=== PATIENT | female | born 1940 | race Native Hawaiian/Other Pacific Islander ===

== ENCOUNTER → 2016-12-17 | Outpatient (CLI) | payer MEDICARE, OTHER ==
[~2016-12-17] MED LIST: ACET-784 PO; ALEN70TA2 PO; CALC1TAB15 PO; CARB25DR OP; CARV10CR PO; CHOL2000 PO; FOLI1 PO; HYDR25TA PO; NAPR220T57 PO; ROSU10 PO
== END | disposition home or self-care (01) ==
LOC: RADMN 16:35
PROVIDERS: ATTEND Legal Medicine
DX: J18.9 Pneumonia, unspecified organism (principal)
CPT/HCPCS: 71020

== ENCOUNTER 2017-08-26 16:32 | Emergency (ER) | payer MEDICARE, OTHER ==
[~2017-08-26] VITALS: Ht 152.4 cm; Wt 59.1 kg
[2017-08-26] MEDS ORDERED: CARB-38 PO (16:45)
[2017-08-26] MEDS ORDERED: CARV12 PO (16:46)
[2017-08-26] MEDS ORDERED: ATOR20TA86 PO (16:46)
[2017-08-26 17:12] LABS: BASOPHILS % (AUTO) 0.4 % (0.0-2.0); EOSINOPHILS % (AUTO) 3.4 % (1.0-6.0); HEMATOCRIT 38.4 % (36-46); LYMPHOCYTES # (AUTO) 2.5 K/uL (1.0-4.8); LYMPHOCYTES % (AUTO) 22.8 % (22.0-44.0); MEAN CORPUSCULAR HEMOGLOBIN 30.3 pg (26.0-34.0); MEAN CORPUSCULAR HGB CONC 33.9 G/dL (31.0-37.0); MEAN CORPUSCULAR VOLUME 89 fL (80-100); MONOCYTES # (AUTO) 0.7 K/uL (0.1-1.0); MONOCYTES % (AUTO) 6.5 % (2.0-9.0); NEUTROPHILS # (AUTO) 7.5 K/uL (1.8-7.7); NEUTROPHILS % (AUTO) 66.9 % (40.0-70.0); PLATELET COUNT (AUTO) 290 K/uL (150-450); RED CELL DISTRIBUTION WIDTH 13.1 % (11.5-14.5); WHITE BLOOD COUNT (AUTO) 11.2 K/uL (4.5-11.0)
[2017-08-26 17:26] LABS: ANION GAP 9 mmol/L (8-16); CALCIUM, TOTAL 9.7 mg/dL (8.8-10.5); CARBON DIOXIDE 29 mmol/L (22-29); CHLORIDE 98 mmol/L (98-107); CREATININE 0.86 mg/dL (0.60-1.30); GLOMERULAR FILTR. RATE CALC > 60 mL/min (>60); POTASSIUM 4.2 mmol/L (3.5-5.1); SODIUM SERUM 136 mmol/L (136-145); UREA NITROGEN, BLOOD 21 mg/dL (7-18)
[2017-08-26 17:29] LABS: PROTHROMBIN TIME 10.8 SEC (9.4-11.6)
[2017-08-26 17:48] LABS: CREATINE KINASE MB 0.6 ng/mL (0-5); CREATINE KINASE, TOTAL 91 U/L (26-192)
[2017-08-26 17:55] LABS: ALANINE AMINOTRANSFERASE 12 U/L (12-78); ASPARTATE AMINOTRANSFERASE 22 U/L (15-37); BILIRUBIN,TOTAL 0.5 mg/dL (0.1-1.0)
[2017-08-26 17:56] LABS: ALBUMIN 3.8 g/dL (3.4-5.0)
[2017-08-26 18:50] LABS: ADD UA MICROSCOPIC YES; APPEARANCE,URINE CLEAR (CLEAR); GLUCOSE, URINE (UA) NEGATIVE (NEGATIVE); KETONES,URINE NEGATIVE (NEGATIVE); LEUKOCYTE ESTERASE ,URINE NEGATIVE (NEGATIVE); OCCULT BLOOD,URINE TRACE (NEGATIVE); PH,URINE 5.5 (5.0-8.0); PROTEIN,URINE NEGATIVE (NEGATIVE)
[2017-08-26 18:59] LABS: RBC,URINE 0-2 /HPF (0-2); SQUAMOUS EPITHELIAL CELL,UR Few /LPF (None Seen); WBC,URINE None Seen /HPF (0-5)
[2017-08-26] MEDS ORDERED: PROPARACAINE HCL 0.5% 15 ML OPHTHALMIC SOLUTION OD ONE (21:15)
[2017-08-26] MEDS ORDERED: FLUORESCEIN SODIUM 1 MG STRIP ONE (21:18)
[2017-08-26 22:30] VITALS: BP 132/72
== END 2017-08-26 22:34 | disposition home or self-care (01) ==
LOC: EMS 16:33
DX: I10 Essential (primary) hypertension (principal); H10.9 Unspecified conjunctivitis; I11.0 Hypertensive heart disease with heart failure; I50.9 Heart failure, unspecified; I25.10 Atherosclerotic heart disease of native coronary artery without angina pectoris; E78.00 Pure hypercholesterolemia, unspecified
CPT/HCPCS: 93005; 99285

== ENCOUNTER 2018-08-22 21:48 | Emergency (ER) | payer MEDICARE, OTHER ==
[~2018-08-22] VITALS: Ht 152.4 cm; Wt 50.0 kg
[~2018-08-22 21:48] MED LIST changes: +ATOR20TA86 PO; +CARB-38 PO; +CARV12 PO; -ROSU10 PO
[2018-08-22 21:59] VITALS: BP 151/91
[2018-08-22 22:41] LABS: APPEARANCE,URINE CLOUDY (CLEAR); BILIRUBIN,URINE NEGATIVE (NEGATIVE); GLUCOSE, URINE (UA) NEGATIVE (NEGATIVE); KETONES,URINE NEGATIVE (NEGATIVE); LEUKOCYTE ESTERASE ,URINE TRACE (NEGATIVE); NITRATE,URINE NEGATIVE (NEGATIVE); OCCULT BLOOD,URINE LARGE (NEGATIVE); PROTEIN,URINE TRACE (NEGATIVE); UROBILINOGEN,URINE 0.2 mg/dL (<=1.0)
[2018-08-22 22:54] LABS: BACTERIA,URINE Rare /HPF (None Seen); RBC,URINE >100 /HPF (0-2)
[2018-08-22 22:55] LABS: RENAL EPITHELIAL CELLS,URINE Rare /LPF (None Seen); SQUAMOUS EPITHELIAL CELL,UR Few /LPF (None Seen)
[2018-08-22] MEDS ORDERED: CIPROFLOXACIN HCL 250 MG TABLET PO ONE (23:30)
== END 2018-08-22 23:24 | disposition home or self-care (01) ==
LOC: EMS 21:49
DX: N39.0 Urinary tract infection, site not specified (principal); I11.0 Hypertensive heart disease with heart failure; I50.9 Heart failure, unspecified; I25.10 Atherosclerotic heart disease of native coronary artery without angina pectoris; E78.00 Pure hypercholesterolemia, unspecified; Z79.899 Other long term (current) drug therapy
CPT/HCPCS: 87086

== ENCOUNTER 2019-11-04 09:21 | Inpatient (IN) | payer MEDICARE, OTHER ==
[~2019-11-04] VITALS: Ht 154.9 cm; Wt 54.2 kg
[2019-11-04] MEDS ORDERED: CARB1TAB42 PO (10:02)
[2019-11-04] MEDS ORDERED: BUSP5TAB20 PO (10:02)
[2019-11-04] MEDS ORDERED: CARV25 PO (10:02)
[2019-11-04] MEDS ORDERED: ATOR10TA84 PO (10:02)
[2019-11-04] MEDS ORDERED: HYDROCODONE/ACETAMINOPHEN 5-325 MG TABLET PO ONE (10:15)
[2019-11-04 10:59] LABS: BASOPHILS % (AUTO) 0.6 % (0.0-2.0); EOSINOPHILS % (AUTO) 1.3 % (1.0-6.0); HEMATOCRIT 39.6 % (36-46); HEMOGLOBIN 12.9 g/dL (12.0-16.0); LYMPHOCYTES % (AUTO) 16.8 % (22.0-44.0); MEAN CORPUSCULAR HEMOGLOBIN 29.9 pg (26.0-34.0); MEAN CORPUSCULAR HGB CONC 32.6 G/dL (31.0-37.0); MEAN CORPUSCULAR VOLUME 92 fL (80-100); MONOCYTES # (AUTO) 0.7 K/uL (0.1-1.0); MONOCYTES % (AUTO) 5.6 % (2.0-9.0); NEUTROPHILS # (AUTO) 8.8 K/uL (1.8-7.7); NEUTROPHILS % (AUTO) 75.7 % (40.0-70.0); PLATELET COUNT (AUTO) 256 K/uL (150-450); RED BLOOD CELL COUNT(AUTO) 4.31 MIL/uL (4.00-5.20); RED CELL DISTRIBUTION WIDTH 12.7 % (11.5-14.5)
[2019-11-04 11:04] LABS: APPEARANCE,URINE CLEAR (CLEAR); BILIRUBIN,URINE NEGATIVE (NEGATIVE); GLUCOSE, URINE (UA) NEGATIVE (NEGATIVE); KETONES,URINE NEGATIVE (NEGATIVE); LEUKOCYTE ESTERASE ,URINE NEGATIVE (NEGATIVE); NITRATE,URINE NEGATIVE (NEGATIVE); OCCULT BLOOD,URINE NEGATIVE (NEGATIVE); PROTEIN,URINE TRACE (NEGATIVE); UROBILINOGEN,URINE 0.2 mg/dL (<=1.0)
[2019-11-04 11:05] LABS: ANION GAP 6 mmol/L (8-16); CALCIUM, TOTAL 9.7 mg/dL (8.8-10.5); CARBON DIOXIDE 27 mmol/L (22-29); CHLORIDE 103 mmol/L (98-107); CREATININE 0.85 mg/dL (0.60-1.30); GLUCOSE,RANDOM 107 mg/dL (70-110); POTASSIUM 4.1 mmol/L (3.5-5.1); SODIUM SERUM 136 mmol/L (136-145); UREA NITROGEN, BLOOD 19 mg/dL (7-18)
[2019-11-04 11:06] LABS: GLOMERULAR FILTR. RATE CALC > 60 mL/min (>60)
[2019-11-04 11:12] LABS: PROTHROMBIN TIME 10.1 SEC (9.4-11.6)
[2019-11-04 11:23] LABS: RBC,URINE 0-2 /HPF (0-2)
[2019-11-04 11:23] LABS: LACTIC ACID 1.6 mmol/L (0.4-2.0)
[2019-11-04 11:24] LABS: BACTERIA,URINE None Seen /HPF (None Seen); SQUAMOUS EPITHELIAL CELL,UR Few /LPF (None Seen); WBC,URINE 0-2 /HPF (0-5); YEAST,URINE None Seen /HPF (None Seen)
[2019-11-04 11:30] LABS: ALANINE AMINOTRANSFERASE 12 U/L (12-78); ALBUMIN 3.8 g/dL (3.4-5.0); ALKALINE PHOSPHATASE 70 U/L (46-116); ASPARTATE AMINOTRANSFERASE 22 U/L (15-37); BILIRUBIN,TOTAL 0.5 mg/dL (0.1-1.0); CREATINE KINASE, TOTAL ONLY 99 U/L (26-192)
[2019-11-04] MEDS ORDERED: ACETAMINOPHEN 325 MG TABLET PO PRN (12:45)
[2019-11-04] MEDS ORDERED: ONDANSETRON HCL 4 MG/2 ML VIAL IVP PRN (12:45)
[2019-11-04] MEDS ORDERED: 0.9% SODIUM CHLORIDE 10 ML SYRINGE IVP PRN (12:45)
[2019-11-04 18:18] VITALS: BP 143/68
[2019-11-04 20:09] VITALS: BP 104/61
[2019-11-05 00:22] VITALS: BP 113/66
[2019-11-05 04:11] VITALS: BP 133/72
[2019-11-05 07:13] LABS: BASOPHILS % (AUTO) 0.5 % (0.0-2.0); EOSINOPHILS % (AUTO) 0.9 % (1.0-6.0); HEMATOCRIT 37.1 % (36-46); HEMOGLOBIN 12.3 g/dL (12.0-16.0); LYMPHOCYTES # (AUTO) 2.1 K/uL (1.0-4.8); LYMPHOCYTES % (AUTO) 21.8 % (22.0-44.0); MEAN CORPUSCULAR HEMOGLOBIN 30.2 pg (26.0-34.0); MEAN CORPUSCULAR HGB CONC 33.2 G/dL (31.0-37.0); MEAN CORPUSCULAR VOLUME 91 fL (80-100); MONOCYTES # (AUTO) 0.7 K/uL (0.1-1.0); MONOCYTES % (AUTO) 7.3 % (2.0-9.0); NEUTROPHILS # (AUTO) 6.7 K/uL (1.8-7.7); NEUTROPHILS % (AUTO) 69.5 % (40.0-70.0); PLATELET COUNT (AUTO) 278 K/uL (150-450); RED BLOOD CELL COUNT(AUTO) 4.07 MIL/uL (4.00-5.20); RED CELL DISTRIBUTION WIDTH 12.9 % (11.5-14.5)
[2019-11-05 07:34] LABS: ALANINE AMINOTRANSFERASE 19 U/L (12-78); ALBUMIN 3.3 g/dL (3.4-5.0); ALKALINE PHOSPHATASE 59 U/L (46-116); ANION GAP 9 mmol/L (8-16); ASPARTATE AMINOTRANSFERASE 21 U/L (15-37); BILIRUBIN,TOTAL 0.8 mg/dL (0.1-1.0); CALCIUM, TOTAL 8.9 mg/dL (8.8-10.5); CARBON DIOXIDE 28 mmol/L (22-29); CHLORIDE 102 mmol/L (98-107); CREATININE 0.72 mg/dL (0.60-1.30); GLUCOSE,RANDOM 106 mg/dL (70-110); SODIUM SERUM 139 mmol/L (136-145); TOTAL PROTEIN, SERUM 7.1 g/dL (6.4-8.2); UREA NITROGEN, BLOOD 23 mg/dL (7-18)
[2019-11-05 07:36] LABS: GLOMERULAR FILTR. RATE CALC > 60 mL/min (>60)
[2019-11-05 08:20] VITALS: BP 143/80
[2019-11-05] MEDS ORDERED: ONDANSETRON HCL 4 MG/2 ML VIAL IVP PRN (08:30)
[2019-11-05] MEDS ORDERED: ZOLPIDEM TARTRATE 5 MG TABLET PO PRN (08:30)
[2019-11-05] MEDS ORDERED: 0.9% SODIUM CHLORIDE 10 ML SYRINGE IVP PRN (08:30)
[2019-11-05] MEDS ORDERED: CARVEDILOL PHOSPHATE 10 MG CR CAPSULE PO SCH (09:00)
[2019-11-05] MEDS ORDERED: CARBIDOPA/LEVODOPA 50-200 MG ER TABLET PO SCH (09:00)
[2019-11-05] MEDS: HYDROCHLOROTHIAZIDE 25 MG TABLET PO SCH ×2 (09:32→20:16)
[2019-11-05] MEDS: PANTOPRAZOLE SODIUM 40 MG DR TABLET PO SCH (09:32)
[2019-11-05] MEDS: DOCUSATE SODIUM 100 MG CAPSULE PO SCH ×2 (09:33→20:16)
[2019-11-05] MEDS: BusPIRone HCL 5 MG TABLET PO SCH ×3 (09:33→20:16)
[2019-11-05] MEDS: CARBIDOPA/LEVODOPA 25-100 MG ER TABLET PO SCH ×2 (09:33→20:16)
[2019-11-05 11:29] VITALS: BP 136/63
[2019-11-05] MEDS: CARVEDILOL 25 MG TABLET PO SCH (15:53)
[2019-11-05] MEDS ORDERED: IPRATROPIUM BROMIDE 0.5 MG/2.5 ML NEB SOLUTION NEB PRN (16:00)
[2019-11-05] MEDS ORDERED: MAGNESIUM SULFATE 4 GM/WATER 100 ML IV PRN (16:00)
[2019-11-05] MEDS ORDERED: ALBUTEROL SULFATE 2.5 MG/0.5 ML NEB SOLUTION NEB PRN (16:00)
[2019-11-05 16:02] VITALS: BP 107/56
[2019-11-05] MEDS ORDERED: SODIUM CHLORIDE 0.9% 50 ML ONE (16:12)
[2019-11-05] MEDS: CefTRIAXone 1 GM/DEXTROSE 50 ML IV SCH (17:43)
[2019-11-05 20:15] VITALS: BP 113/65
[2019-11-05] MEDS: ATORVASTATIN CALCIUM 10 MG TABLET PO SCH (20:16)
[2019-11-05] MEDS: IPRATROPIUM BROMIDE 0.5 MG/2.5 ML NEB SOLUTION NEB SCH (20:20)
[2019-11-05] MEDS: ALBUTEROL SULFATE 2.5 MG/0.5 ML NEB SOLUTION NEB SCH (20:20)
[2019-11-06] VITALS (7 sets, daily range): BP systolic 108–135; BP diastolic 63–74
[2019-11-06] MEDS: IPRATROPIUM BROMIDE 0.5 MG/2.5 ML NEB SOLUTION NEB SCH ×4 (02:00→20:22)
[2019-11-06] MEDS: ALBUTEROL SULFATE 2.5 MG/0.5 ML NEB SOLUTION NEB SCH ×4 (02:00→20:22)
[2019-11-06] MEDS: ACETAMINOPHEN 325 MG TABLET PO PRN (05:38)
[2019-11-06 07:04] LABS: BASOPHILS % (AUTO) 0.3 % (0.0-2.0); EOSINOPHILS % (AUTO) 1.8 % (1.0-6.0); HEMATOCRIT 36.3 % (36-46); HEMOGLOBIN 11.8 g/dL (12.0-16.0); LYMPHOCYTES # (AUTO) 2.3 K/uL (1.0-4.8); LYMPHOCYTES % (AUTO) 19.8 % (22.0-44.0); MEAN CORPUSCULAR HEMOGLOBIN 29.7 pg (26.0-34.0); MEAN CORPUSCULAR HGB CONC 32.5 G/dL (31.0-37.0); MEAN CORPUSCULAR VOLUME 91 fL (80-100); MONOCYTES # (AUTO) 0.8 K/uL (0.1-1.0); MONOCYTES % (AUTO) 7.1 % (2.0-9.0); NEUTROPHILS # (AUTO) 8.2 K/uL (1.8-7.7); PLATELET COUNT (AUTO) 266 K/uL (150-450); RED BLOOD CELL COUNT(AUTO) 3.98 MIL/uL (4.00-5.20)
[2019-11-06 07:24] LABS: ANION GAP 8 mmol/L (8-16); CALCIUM, TOTAL 8.8 mg/dL (8.8-10.5); CARBON DIOXIDE 30 mmol/L (22-29); CHLORIDE 100 mmol/L (98-107); CREATININE 0.68 mg/dL (0.60-1.30); GLUCOSE,RANDOM 104 mg/dL (70-110); POTASSIUM 3.7 mmol/L (3.5-5.1); SODIUM SERUM 138 mmol/L (136-145); UREA NITROGEN, BLOOD 22 mg/dL (7-18)
[2019-11-06 07:28] LABS: GLOMERULAR FILTR. RATE CALC > 60 mL/min (>60)
[2019-11-06] MEDS: DOCUSATE SODIUM 100 MG CAPSULE PO SCH ×2 (08:36→20:57)
[2019-11-06] MEDS: HYDROCHLOROTHIAZIDE 25 MG TABLET PO SCH ×2 (08:37→20:54)
[2019-11-06] MEDS: CARVEDILOL 25 MG TABLET PO SCH (08:37)
[2019-11-06] MEDS: BusPIRone HCL 5 MG TABLET PO SCH ×3 (08:37→20:54)
[2019-11-06] MEDS: PANTOPRAZOLE SODIUM 40 MG DR TABLET PO SCH (08:37)
[2019-11-06] MEDS: CARBIDOPA/LEVODOPA 25-100 MG ER TABLET PO SCH ×2 (08:37→20:54)
[2019-11-06] MEDS ORDERED: LACTULOSE 20 GM/30 ML SOLUTION UDCUP PO PRN (14:30)
[2019-11-06] MEDS: CefTRIAXone 1 GM/DEXTROSE 50 ML IV SCH (16:47)
[2019-11-06] MEDS: ATORVASTATIN CALCIUM 10 MG TABLET PO SCH (20:54)
[2019-11-07] MEDS: ALBUTEROL SULFATE 2.5 MG/0.5 ML NEB SOLUTION NEB SCH ×4 (02:00→21:02)
[2019-11-07] MEDS: IPRATROPIUM BROMIDE 0.5 MG/2.5 ML NEB SOLUTION NEB SCH ×4 (02:00→21:02)
[2019-11-07 03:41] VITALS: BP 128/67
[2019-11-07 06:44] LABS: BASOPHILS % (AUTO) 0.4 % (0.0-2.0); EOSINOPHILS % (AUTO) 2.6 % (1.0-6.0); HEMATOCRIT 39.6 % (36-46); HEMOGLOBIN 12.9 g/dL (12.0-16.0); MEAN CORPUSCULAR HGB CONC 32.6 G/dL (31.0-37.0); MEAN CORPUSCULAR VOLUME 92 fL (80-100); MONOCYTES % (AUTO) 7.6 % (2.0-9.0); NEUTROPHILS # (AUTO) 9.8 K/uL (1.8-7.7); NEUTROPHILS % (AUTO) 74.4 % (40.0-70.0); PLATELET COUNT (AUTO) 229 K/uL (150-450); RED CELL DISTRIBUTION WIDTH 12.8 % (11.5-14.5)
[2019-11-07 07:12] LABS: ANION GAP 11 mmol/L (8-16); CALCIUM, TOTAL 9.6 mg/dL (8.8-10.5); CARBON DIOXIDE 30 mmol/L (22-29); CHLORIDE 98 mmol/L (98-107); CREATININE 0.89 mg/dL (0.60-1.30); GLUCOSE,RANDOM 126 mg/dL (70-110); POTASSIUM 3.5 mmol/L (3.5-5.1); SODIUM SERUM 139 mmol/L (136-145); UREA NITROGEN, BLOOD 15 mg/dL (7-18)
[2019-11-07 07:38] LABS: GLOMERULAR FILTR. RATE CALC > 60 mL/min (>60)
[2019-11-07 07:40] VITALS: BP 136/72
[2019-11-07] MEDS: ACETAMINOPHEN 325 MG TABLET PO PRN (08:06)
[2019-11-07] MEDS: HYDROCHLOROTHIAZIDE 25 MG TABLET PO SCH ×2 (08:07→20:39)
[2019-11-07] MEDS: PANTOPRAZOLE SODIUM 40 MG DR TABLET PO SCH (08:07)
[2019-11-07] MEDS: CARVEDILOL 25 MG TABLET PO SCH (08:07)
[2019-11-07] MEDS: CARBIDOPA/LEVODOPA 25-100 MG ER TABLET PO SCH ×2 (08:07→20:39)
[2019-11-07] MEDS: DOCUSATE SODIUM 100 MG CAPSULE PO SCH ×2 (08:08→20:44)
[2019-11-07] MEDS: BusPIRone HCL 5 MG TABLET PO SCH ×3 (08:11→20:39)
[2019-11-07 11:17] VITALS: BP 95/73
[2019-11-07 15:17] VITALS: BP 132/75
[2019-11-07] MEDS ORDERED: SODIUM CHLORIDE 0.9% 250 ML IV ONE (16:43)
[2019-11-07] MEDS: CefTRIAXone 1 GM/DEXTROSE 50 ML IV SCH (16:52)
[2019-11-07] MEDS ORDERED: CARV20CR PO (16:57)
[2019-11-07] MEDS: POTASSIUM CHL 10 MEQ/WATER 50 ML IV PRN ×3 (17:13→20:48)
[2019-11-07] MEDS ORDERED: VANCOMYCIN HCL 1.25 GM in DEXTROSE 5%-WATER 250 ML IV ONE (17:15)
[2019-11-07] MEDS: MAGNESIUM SULFATE 2 GM/WATER 50 ML IV PRN (17:36)
[2019-11-07 19:39] VITALS: BP 131/69
[2019-11-07] MEDS: ATORVASTATIN CALCIUM 10 MG TABLET PO SCH (20:39)
[2019-11-08 00:34] VITALS: BP 133/89
[2019-11-08] MEDS: ALBUTEROL SULFATE 2.5 MG/0.5 ML NEB SOLUTION NEB SCH ×4 (02:00→21:29)
[2019-11-08] MEDS: IPRATROPIUM BROMIDE 0.5 MG/2.5 ML NEB SOLUTION NEB SCH ×4 (02:00→21:29)
[2019-11-08 05:23] VITALS: BP 142/50
[2019-11-08] MEDS: VANCOMYCIN HCL 500 MG in DEXTROSE 5%-WATER 100 ML IV SCH ×2 (06:08→22:16)
[2019-11-08 06:55] LABS: BASOPHILS % (AUTO) 0.4 % (0.0-2.0); EOSINOPHILS % (AUTO) 3.1 % (1.0-6.0); HEMATOCRIT 37.9 % (36-46); HEMOGLOBIN 12.5 g/dL (12.0-16.0); LYMPHOCYTES # (AUTO) 1.8 K/uL (1.0-4.8); LYMPHOCYTES % (AUTO) 15.7 % (22.0-44.0); MEAN CORPUSCULAR HEMOGLOBIN 30.1 pg (26.0-34.0); MEAN CORPUSCULAR HGB CONC 33.1 G/dL (31.0-37.0); MEAN CORPUSCULAR VOLUME 91 fL (80-100); MONOCYTES % (AUTO) 8.9 % (2.0-9.0); NEUTROPHILS # (AUTO) 8.3 K/uL (1.8-7.7); NEUTROPHILS % (AUTO) 71.9 % (40.0-70.0); PLATELET COUNT (AUTO) 279 K/uL (150-450); RED BLOOD CELL COUNT(AUTO) 4.16 MIL/uL (4.00-5.20); RED CELL DISTRIBUTION WIDTH 12.6 % (11.5-14.5)
[2019-11-08 07:07] LABS: ANION GAP 8 mmol/L (8-16); CALCIUM, TOTAL 8.9 mg/dL (8.8-10.5); CARBON DIOXIDE 30 mmol/L (22-29); CHLORIDE 96 mmol/L (98-107); CREATININE 0.74 mg/dL (0.60-1.30); GLUCOSE,RANDOM 137 mg/dL (70-110); POTASSIUM 3.7 mmol/L (3.5-5.1); SODIUM SERUM 134 mmol/L (136-145); UREA NITROGEN, BLOOD 17 mg/dL (7-18)
[2019-11-08 07:10] LABS: GLOMERULAR FILTR. RATE CALC > 60 mL/min (>60)
[2019-11-08 07:42] VITALS: BP 137/72
[2019-11-08] MEDS: PANTOPRAZOLE SODIUM 40 MG DR TABLET PO SCH (08:31)
[2019-11-08] MEDS: HYDROCHLOROTHIAZIDE 25 MG TABLET PO SCH ×2 (08:31→22:06)
[2019-11-08] MEDS: BusPIRone HCL 5 MG TABLET PO SCH ×3 (08:32→22:06)
[2019-11-08] MEDS: CARVEDILOL 25 MG TABLET PO SCH (08:32)
[2019-11-08] MEDS: DOCUSATE SODIUM 100 MG CAPSULE PO SCH ×2 (08:32→22:06)
[2019-11-08] MEDS: CARBIDOPA/LEVODOPA 25-100 MG ER TABLET PO SCH ×2 (08:32→22:07)
[2019-11-08 11:19] VITALS: BP 130/65
[2019-11-08 15:41] VITALS: BP 132/74
[2019-11-08 20:17] VITALS: BP 152/79
[2019-11-08] MEDS: ATORVASTATIN CALCIUM 10 MG TABLET PO SCH (22:07)
[2019-11-09] VITALS (7 sets, daily range): BP systolic 133–149; BP diastolic 70–79
[2019-11-09] MEDS: IPRATROPIUM BROMIDE 0.5 MG/2.5 ML NEB SOLUTION NEB SCH ×4 (02:00→20:10)
[2019-11-09] MEDS: ALBUTEROL SULFATE 2.5 MG/0.5 ML NEB SOLUTION NEB SCH ×4 (02:00→20:10)
[2019-11-09] MEDS: VANCOMYCIN HCL 500 MG in DEXTROSE 5%-WATER 100 ML IV SCH (06:29)
[2019-11-09 06:51] LABS: CALCIUM, TOTAL 9.7 mg/dL (8.8-10.5); CREATININE 0.96 mg/dL (0.60-1.30); POTASSIUM 3.5 mmol/L (3.5-5.1); VANCOMYCIN,RANDOM 15.5 mcg/mL (25.0-50.0)
[2019-11-09] MEDS: CARVEDILOL 25 MG TABLET PO SCH (08:29)
[2019-11-09] MEDS: DOCUSATE SODIUM 100 MG CAPSULE PO SCH ×2 (08:30→20:29)
[2019-11-09] MEDS: HYDROCHLOROTHIAZIDE 25 MG TABLET PO SCH ×2 (08:30→20:29)
[2019-11-09] MEDS: BusPIRone HCL 5 MG TABLET PO SCH ×3 (08:31→20:29)
[2019-11-09] MEDS: CARBIDOPA/LEVODOPA 25-100 MG ER TABLET PO SCH ×2 (08:31→20:29)
[2019-11-09] MEDS: PANTOPRAZOLE SODIUM 40 MG DR TABLET PO SCH (08:31)
[2019-11-09 17:36] LABS: MAGNESIUM 1.7 mg/dL (1.80-2.40)
[2019-11-09] MEDS: MAGNESIUM OXIDE 400 MG TABLET PO PRN (18:12)
[2019-11-09] MEDS: VANCOMYCIN HCL 750 MG in DEXTROSE 5%-WATER 250 ML IV SCH (18:26)
[2019-11-09] MEDS: ATORVASTATIN CALCIUM 10 MG TABLET PO SCH (20:28)
[2019-11-10] MEDS: ALBUTEROL SULFATE 2.5 MG/0.5 ML NEB SOLUTION NEB SCH ×4 (02:00→20:10)
[2019-11-10] MEDS: IPRATROPIUM BROMIDE 0.5 MG/2.5 ML NEB SOLUTION NEB SCH ×4 (02:00→20:10)
[2019-11-10 04:22] VITALS: BP 123/68
[2019-11-10] MEDS: VANCOMYCIN HCL 750 MG in DEXTROSE 5%-WATER 250 ML IV SCH (07:00)
[2019-11-10 07:05] LABS: ANION GAP 8 mmol/L (8-16); CALCIUM, TOTAL 9.2 mg/dL (8.8-10.5); CARBON DIOXIDE 33 mmol/L (22-29); CHLORIDE 91 mmol/L (98-107); CREATININE 0.77 mg/dL (0.60-1.30); GLUCOSE,RANDOM 107 mg/dL (70-110); POTASSIUM 3.2 mmol/L (3.5-5.1); SODIUM SERUM 132 mmol/L (136-145); UREA NITROGEN, BLOOD 19 mg/dL (7-18)
[2019-11-10 07:12] VITALS: BP 139/71
[2019-11-10 07:24] LABS: GLOMERULAR FILTR. RATE CALC > 60 mL/min (>60)
[2019-11-10] MEDS: ACETAMINOPHEN 325 MG TABLET PO PRN (08:20)
[2019-11-10] MEDS: POTASSIUM CHLORIDE 20 MEQ ER TABLET PO PRN (08:20)
[2019-11-10] MEDS: HYDROCHLOROTHIAZIDE 25 MG TABLET PO SCH ×2 (08:20→20:23)
[2019-11-10] MEDS: CARBIDOPA/LEVODOPA 25-100 MG ER TABLET PO SCH ×2 (08:20→20:23)
[2019-11-10] MEDS: PANTOPRAZOLE SODIUM 40 MG DR TABLET PO SCH (08:20)
[2019-11-10] MEDS: CARVEDILOL 25 MG TABLET PO SCH (08:20)
[2019-11-10] MEDS: DOCUSATE SODIUM 100 MG CAPSULE PO SCH ×2 (08:20→20:33)
[2019-11-10] MEDS: BusPIRone HCL 5 MG TABLET PO SCH ×3 (08:21→20:23)
[2019-11-10 11:23] VITALS: BP 109/62
[2019-11-10 15:17] VITALS: BP 146/76
[2019-11-10 19:53] VITALS: BP 143/79
[2019-11-10] MEDS: ATORVASTATIN CALCIUM 10 MG TABLET PO SCH (20:23)
[2019-11-10 23:41] VITALS: BP 146/77
[2019-11-11] MEDS: ALBUTEROL SULFATE 2.5 MG/0.5 ML NEB SOLUTION NEB SCH ×5 (02:00→21:15)
[2019-11-11] MEDS: IPRATROPIUM BROMIDE 0.5 MG/2.5 ML NEB SOLUTION NEB SCH ×5 (02:00→21:15)
[2019-11-11 03:51] VITALS: BP 145/72
[2019-11-11 06:37] LABS: BASOPHILS % (AUTO) 0.4 % (0.0-2.0); EOSINOPHILS % (AUTO) 3.6 % (1.0-6.0); HEMATOCRIT 35.5 % (36-46); LYMPHOCYTES # (AUTO) 1.7 K/uL (1.0-4.8); LYMPHOCYTES % (AUTO) 15.8 % (22.0-44.0); MEAN CORPUSCULAR HEMOGLOBIN 30.5 pg (26.0-34.0); MEAN CORPUSCULAR HGB CONC 33.9 G/dL (31.0-37.0); MEAN CORPUSCULAR VOLUME 90 fL (80-100); MONOCYTES % (AUTO) 9.1 % (2.0-9.0); NEUTROPHILS # (AUTO) 7.9 K/uL (1.8-7.7); NEUTROPHILS % (AUTO) 71.1 % (40.0-70.0); PLATELET COUNT (AUTO) 317 K/uL (150-450); RED BLOOD CELL COUNT(AUTO) 3.94 MIL/uL (4.00-5.20); RED CELL DISTRIBUTION WIDTH 12.4 % (11.5-14.5)
[2019-11-11 06:43] LABS: ANION GAP 6 mmol/L (8-16); CALCIUM, TOTAL 9.1 mg/dL (8.8-10.5); CARBON DIOXIDE 33 mmol/L (22-29); CHLORIDE 94 mmol/L (98-107); CREATININE 0.74 mg/dL (0.60-1.30); GLUCOSE,RANDOM 112 mg/dL (70-110); POTASSIUM 3.2 mmol/L (3.5-5.1); SODIUM SERUM 133 mmol/L (136-145); UREA NITROGEN, BLOOD 20 mg/dL (7-18)
[2019-11-11 06:54] LABS: GLOMERULAR FILTR. RATE CALC > 60 mL/min (>60)
[2019-11-11 07:28] VITALS: BP 147/76
[2019-11-11] MEDS: HYDROCHLOROTHIAZIDE 25 MG TABLET PO SCH ×2 (08:16→20:21)
[2019-11-11] MEDS: CARVEDILOL 25 MG TABLET PO SCH (08:17)
[2019-11-11] MEDS: BusPIRone HCL 5 MG TABLET PO SCH ×3 (08:17→20:21)
[2019-11-11] MEDS: PANTOPRAZOLE SODIUM 40 MG DR TABLET PO SCH (08:17)
[2019-11-11] MEDS: DOCUSATE SODIUM 100 MG CAPSULE PO SCH ×2 (08:18→20:20)
[2019-11-11] MEDS: CARBIDOPA/LEVODOPA 25-100 MG ER TABLET PO SCH ×2 (08:18→20:21)
[2019-11-11] MEDS: MAGNESIUM SULFATE 2 GM/WATER 50 ML IV PRN (08:19)
[2019-11-11] MEDS: POTASSIUM CHLORIDE 20 MEQ ER TABLET PO PRN (08:19)
[2019-11-11 11:15] VITALS: BP 140/75
[2019-11-11 14:02] LABS: BASOPHILS % (AUTO) 0.4 % (0.0-2.0); EOSINOPHILS % (AUTO) 2.6 % (1.0-6.0); HEMATOCRIT 37.4 % (36-46); HEMOGLOBIN 12.5 g/dL (12.0-16.0); LYMPHOCYTES # (AUTO) 1.8 K/uL (1.0-4.8); LYMPHOCYTES % (AUTO) 15.7 % (22.0-44.0); MEAN CORPUSCULAR HEMOGLOBIN 30.3 pg (26.0-34.0); MEAN CORPUSCULAR HGB CONC 33.4 G/dL (31.0-37.0); MEAN CORPUSCULAR VOLUME 91 fL (80-100); NEUTROPHILS # (AUTO) 8.2 K/uL (1.8-7.7); NEUTROPHILS % (AUTO) 72.3 % (40.0-70.0); PLATELET COUNT (AUTO) 348 K/uL (150-450); RED BLOOD CELL COUNT(AUTO) 4.13 MIL/uL (4.00-5.20); RED CELL DISTRIBUTION WIDTH 12.5 % (11.5-14.5)
[2019-11-11 14:11] LABS: CALCIUM, TOTAL 9.1 mg/dL (8.8-10.5); CREATININE 0.91 mg/dL (0.60-1.30)
[2019-11-11 14:16] LABS: ALBUMIN 3.3 g/dL (3.4-5.0); BILIRUBIN,TOTAL 0.6 mg/dL (0.1-1.0); TOTAL PROTEIN, SERUM 8.1 g/dL (6.4-8.2)
[2019-11-11 14:54] LABS: GLUCOMETER DEV NAME(LOC) 5N.2; GLUCOSE,POINT OF CARE 153 MG/DL (70-110)
[2019-11-11 16:11] LABS: APPEARANCE,URINE CLEAR (CLEAR); BILIRUBIN,URINE NEGATIVE (NEGATIVE); GLUCOSE, URINE (UA) NEGATIVE (NEGATIVE); KETONES,URINE NEGATIVE (NEGATIVE); LEUKOCYTE ESTERASE ,URINE NEGATIVE (NEGATIVE); NITRATE,URINE NEGATIVE (NEGATIVE); OCCULT BLOOD,URINE NEGATIVE (NEGATIVE); PH,URINE 7.5 (5.0-8.0); PROTEIN,URINE NEGATIVE (NEGATIVE)
[2019-11-11 16:16] LABS: AMPHET/METH SCREEN,URINE NEGATIVE (NEGATIVE); BARBITURATE SCREEN, URINE NEGATIVE (NEGATIVE); BENZODIAZEPINES SCREEN,URINE NEGATIVE (NEGATIVE); CANNABINOID SCREEN,URINE NEGATIVE (NEGATIVE); COCAINE SCREEN,URINE NEGATIVE (NEGATIVE); METHADONE SCREEN, URINE NEGATIVE (NEGATIVE); OPIATE SCREEN,URINE NEGATIVE (NEGATIVE)
[2019-11-11 16:17] LABS: PHENCYCLIDINE SCREEN,URINE NEGATIVE (NEGATIVE)
[2019-11-11 16:18] VITALS: BP 129/81
[2019-11-11 16:32] LABS: BACTERIA,URINE Moderate /HPF (None Seen); RBC,URINE None Seen /HPF (0-2); WBC,URINE None Seen /HPF (0-5)
[2019-11-11 16:33] LABS: YEAST,URINE Few /HPF (None Seen)
[2019-11-11 16:34] LABS: SQUAMOUS EPITHELIAL CELL,UR Few /LPF (None Seen)
[2019-11-11 19:28] VITALS: BP 145/73
[2019-11-11] MEDS: ATORVASTATIN CALCIUM 10 MG TABLET PO SCH (20:21)
[2019-11-11] MEDS: OXYGEN THERAPY IH SCH (21:14)
[2019-11-11 23:35] VITALS: BP 151/67
[2019-11-12] MEDS: IPRATROPIUM BROMIDE 0.5 MG/2.5 ML NEB SOLUTION NEB SCH ×3 (02:00→14:53)
[2019-11-12] MEDS: ALBUTEROL SULFATE 2.5 MG/0.5 ML NEB SOLUTION NEB SCH ×3 (02:00→14:53)
[2019-11-12 04:37] VITALS: BP 143/71
[2019-11-12 07:48] VITALS: BP 136/75
[2019-11-12 07:59] LABS: ALBUMIN 3.2 g/dL (3.4-5.0); ANION GAP 11 mmol/L (8-16); CALCIUM, TOTAL 9.1 mg/dL (8.8-10.5); CARBON DIOXIDE 30 mmol/L (22-29); CHLORIDE 96 mmol/L (98-107); CREATININE 0.71 mg/dL (0.60-1.30); GLUCOSE,RANDOM 104 mg/dL (70-110); POTASSIUM 3.5 mmol/L (3.5-5.1); SODIUM SERUM 137 mmol/L (136-145); UREA NITROGEN, BLOOD 17 mg/dL (7-18)
[2019-11-12 08:00] LABS: GLOMERULAR FILTR. RATE CALC > 60 mL/min (>60)
[2019-11-12] MEDS: OXYGEN THERAPY IH SCH (08:00)
[2019-11-12] MEDS: PANTOPRAZOLE SODIUM 40 MG DR TABLET PO SCH (08:37)
[2019-11-12] MEDS: HYDROCHLOROTHIAZIDE 25 MG TABLET PO SCH (08:37)
[2019-11-12] MEDS: CARVEDILOL 25 MG TABLET PO SCH (08:37)
[2019-11-12] MEDS: DOCUSATE SODIUM 100 MG CAPSULE PO SCH (08:37)
[2019-11-12] MEDS: CARBIDOPA/LEVODOPA 25-100 MG ER TABLET PO SCH (08:37)
[2019-11-12] MEDS: BusPIRone HCL 5 MG TABLET PO SCH ×2 (08:37→17:30)
[2019-11-12 11:15] VITALS: BP 136/64
[2019-11-12] MEDS: MAGNESIUM OXIDE 400 MG TABLET PO PRN (11:15)
[2019-11-12] MEDS: ACETAMINOPHEN 325 MG TABLET PO PRN (15:16)
[2019-11-12 15:32] VITALS: BP 125/67
== END 2019-11-12 18:32 | DRG 73 ==
LOC: EMS 09:21 → 5S 17:18
PROVIDERS: ADMIT Internal Medicine; ATTEND Internal Medicine
DX: G90.8 Other disorders of autonomic nervous system (principal); R65.11 Systemic inflammatory response syndrome (SIRS) of non-infectious origin with acute organ dysfunction; G93.41 Metabolic encephalopathy; R78.81 Bacteremia; S00.03XA Contusion of scalp, initial encounter; I25.10 Atherosclerotic heart disease of native coronary artery without angina pectoris; I11.0 Hypertensive heart disease with heart failure; I50.9 Heart failure, unspecified; E78.00 Pure hypercholesterolemia, unspecified; G20 Parkinson's disease; B95.8 Unspecified staphylococcus as the cause of diseases classified elsewhere; F02.80 Dementia in other diseases classified elsewhere, unspecified severity, without behavioral disturbance, psychotic disturbance, mood disturbance, and anxiety; D72.829 Elevated white blood cell count, unspecified; K59.00 Constipation, unspecified; W07.XXXA Fall from chair, initial encounter; Z90.49 Acquired absence of other specified parts of digestive tract; Z79.899 Other long term (current) drug therapy; Y93.89 Activity, other specified; Y92.89 Other specified places as the place of occurrence of the external cause; Y99.8 Other external cause status
CPT/HCPCS: 51702; 70450; 70496; 72125; 80307; 83605; 83735; 84132; 84145; 86850; 86900; 86901; 87040; 87086; 87205; 92523; 92610; 93005; 93306; 93880; 94640; 97110; 97112; 97116; 97162; 97167; 97530; 97535; J0696; J3370; J3475; J3480; J7050; J7060